=== PATIENT | male | born 1945 | race Caucasian/White ===

== ENCOUNTER 2021-02-22 16:42 | Emergency (ER) | payer MEDICARE, OTHER ==
[2021-02-22] MEDS ORDERED: AZITHROMYCIN250 MG PO (17:58)
== END 2021-02-22 18:05 | disposition home or self-care (01) ==
LOC: FER 16:42
DX: J20.9 Acute bronchitis, unspecified (principal); I10 Essential (primary) hypertension; F17.210 Nicotine dependence, cigarettes, uncomplicated; Z79.899 Other long term (current) drug therapy
CPT/HCPCS: 71046

== ENCOUNTER 2021-08-06 09:57 | Emergency (ER) | payer MEDICARE, OTHER ==
[~2021-08-06 09:57] MED LIST: AZITHROMYCIN250 MG PO
[2021-08-06 10:30] LABS: EOSINOPHIL 1.9 % (0-7); HCT 42.6 % (42.0-52.0); HGB 13.8 g/dl (13.2-18.0); LYMPHOCYTE 18.1 % (15-48); MCH 29.4 pg (25.0-31.0); MCHC 32.4 g/dL (32.0-36.0); MCV 90.6 fL (78.0-100.0); MONOCYTE 8.6 % (0-12); MPV 9.7 fL (6.0-9.5); NEUTROPHIL 69.9 % (41-80); NRBC 0; PLT 354 K/uL (150-400); RDW 12.2 % (11.5-14.0); WBC 10.3 K/uL (4.0-10.5)
[2021-08-06 10:46] LABS: INR 1.06 (0.9-1.2); PROTHROMBIN TIME 13.2 SECONDS (11.8-13.4); PTT 35.5 SECONDS (24.4-34.7)
[2021-08-06 10:47] LABS: D-DIMER 1.81 ug/mLFEU (0.00-0.41)
[2021-08-06 10:55] LABS: PRO-BNP 891 pg/mL (<450)
[2021-08-06 10:56] LABS: ALBUMIN 3.2 g/dL (3.4-5.0); BILIRUBIN - TOTAL 0.3 mg/dL (0.2-1.0); BUN/CREAT RATIO (CALC) 16.8 RATIO; CREATININE 1.19 mg/dL (0.67-1.17); GLOBULIN (CALCULATION) 4.3 g/dL; MAGNESIUM 1.7 mg/dL (1.8-2.4); POTASSIUM 5.2 mmol/L (3.5-5.1); TOTAL PROTEIN 7.5 g/dL (6.4-8.2)
== END 2021-08-06 14:15 | disposition home or self-care (01) ==
LOC: FER 09:57
PROVIDERS: Emergency Medicine
DX: R07.89 Other chest pain (principal); R91.8 Other nonspecific abnormal finding of lung field; I10 Essential (primary) hypertension; E11.9 Type 2 diabetes mellitus without complications; F17.200 Nicotine dependence, unspecified, uncomplicated; Z88.0 Allergy status to penicillin
CPT/HCPCS: 36415; 71045; 71275; 80053; 83735; 83880; 84484; 85025; 85379; 85610; 85730; 93005; J7040